=== PATIENT | female | born 1960 | race Caucasian/White ===

== ENCOUNTER 2017-09-03 14:33 | Emergency (ER) | payer OTHER ==
[2017-09-03 14:41] VITALS: RESP 18
[2017-09-03] MEDS ORDERED: HYDROcodone/APAP 5-325MG 1 EACH TAB PO STA (15:23)
--- NOTE | 2017-09-03 15:52 | CT ---
EXAMINATION TYPE: CT lumbar spine wo con DATE OF EXAM: 09/03/2017 COMPARISON: NONE HISTORY: Acute low back pain with bending over and leg weakness bilaterally. CT DLP: 1496.30 mGycm CONTRAST: None TECHNIQUE: CT of the lumbar spine is performed on a spiral scan at 3 mm thick sections. Reconstructed images are performed in the coronal and sagittal planes. FINDINGS: T12-L1: No focal disc herniation or significant disc bulge is evident. No spinal canal stenosis or neural foraminal stenosis is present. L1-L2: No focal disc herniation or significant disc bulge is evident. No spinal canal stenosis or n eural foraminal stenosis is present L2-L3: There appears be a large right paracentral focal disc herniation. This would have moderate to marked anterior thecal sac compression. No AP spinal canal stenosis is present. This could be confirm ed with MRI. L3-L4: Broad-based disc bulge has mild anterior thecal sac flattening. No AP spinal canal stenosis pr esent. Neural foramen are patent. L4-L5: Broad-based disc bulge has mild anterior thecal sac compression. Some mild ligamentum flavum l axity may be present. No spinal canal stenosis is present. Neural foramen are patent. L5-S1: No focal disc herniation or significant disc bulge is evident. No spinal canal stenosis or n eural foraminal stenosis is present Vertebral alignment appears normal. IMPRESSION: 1. Moderate to large right paracentral disc herniation L2-L3 with moderate anterior thecal sac compre ssion. This could be confirmed with MRI. 2. Disc bulging L3-4 L4-5 without spinal canal stenosis.
[2017-09-03] MEDS ORDERED: DEXAMETHASONE SOD PHOSPHATE 4 MG/ML 1 ML VIAL IV STA (16:07)
--- NOTE | 2017-09-03 16:07 | ED ---
General Adult HPI - General Source: patient, family, EMS, RN notes reviewed Mode of arrival: EMS Limitations: no limitations <Colby Pulido - Last Filed: 09/03/17 16:03> <David Ruvalcaba - Last Filed: 09/03/17 18:15> - General Chief complaint: Back Pain/Injury Stated complaint: back pain Time Seen by Provider: 09/03/17 14:49 - History of Present Illness Initial comments: If complaint and history of present illness a 57-year-old female here for complaint of low back pain. Patient reports she bent over and felt and heard a pop. Subsequent to that had pain radiating down both legs. Denies falling. But states walking is difficult. He needs help. Denies difficulty having bowel movements or urinating. Denies weakness in that respect. (Colby Pulido) - Related Data Home Medications Medication Instructions Recorded Confirmed Cholecalciferol (Vitamin D3) 2,000 unit PO DAILY 09/03/17 09/03/17 [Vitamin D3] Magnesium Oxide [Mag-Ox] 400 mg PO DAILY 09/03/17 09/03/17 Omeprazole [PriLOSEC] 20 mg PO DAILY 09/03/17 09/03/17 Warfarin [Coumadin] 5 mg PO MOWEFR 09/03/17 09/03/17 Warfarin [Coumadin] 7.5 mg PO SUTUTHSA 09/03/17 09/03/17 Allergies Allergy/AdvReac Type Severity Reaction Status Date / Time Iodinated Contrast- Oral and Allergy Rash/Hives Verified 09/03/17 14:57 IV Dye Review of Systems ROS Other: All systems not noted in ROS Statement are negative. <Colby Pulido - Last Filed: 09/03/17 16:03> ROS Other: All systems not noted in ROS Statement are negative. <David Ruvalcaba - Last Filed: 09/03/17 18:15> ROS Statement: Those systems with pertinent positive or pertinent negative responses have been documented in the HPI. Review of systems no headache or visual acuity changes denying any chest pain or shortness of breath no GI/ problems. She has lumbar area pain that radiates down both legs posteriorly. All systems reviewed. Past medical problems asthma, chronic back pain. Currently on warfare in because of a PE 10 years ago. The patient's surgeries include appendectomy, post cystectomy. She has ALLERGIES to IV dye oral and IV. Family history noncontributory. Patient is a former smoker denies alcohol use. (Colby Pulido) Past Medical History Past Medical History: Asthma Additional Past Medical History / Comment(s): back pain, bladder issues History of Any Multi-Drug Resistant Organisms: None Reported Past Surgical History: Appendectomy, Section, Cholecystectomy Past Psychological History: No Psychological Hx Reported Smoking Status: Former smoker Past Alcohol Use History: None Reported Past Drug Use History: None Reported <Colby Pulido - Last Filed: 09/03/17 16:03> General Exam Limitations: no limitations <Colby Pulido - Last Filed: 09/03/17 16:03> <David Ruvalcaba - Last Filed: 09/03/17 18:15> - General Exam Comments Initial Comments: General: The patient is awake and alert, complains of low back pain radiates down both legs causing weakness. Eye: Pupils are equal, round and reactive to light, extra-ocular movements are intact ; there is normal conjunctiva bilaterally. No signs of icterus. Ears, nose, mouth and throat: There are moist mucous membranes and no oral lesions. Neck: The neck is supple, there is no tenderness . Cardiovascular: There is a regular rate and rhythm. No murmur, rub or gallop is appreciated. Respiratory: Lungs are clear to auscultation, respirations are non-labored, breath sounds are equal. No wheezes, stridor, rales, or rhonchi. Gastrointestinal: No abdominal pain Back: . Complains of back pain. Discomfort that radiates down both legs posteriorly. Difficult walking. Musculoskeletal: Bilateral lower extremity pain starts in the lumbar spine after bending over and feeling a pop. Past history of lumbar disc problems. No foot drop. Vascular status to the feet are intact. Neurological: Suspect, possible disc injury. (Colby Pulido) Course <Colby Pulido - Last Filed: 09/03/17 16:03> <David Ruvalcaba - Last Filed: 09/03/17 18:15> Vital Signs 09/03/17 09/03/17 14:36 16:25 Temperature 97.6 F Pulse Rate 81 81 Respiratory 18 18 Rate Blood Pressure 127/60 147/65 O2 Sat by Pulse 98 97 Oximetry - Reevaluation(s) Reevaluation #1: 09/03/17 17:32 Patient was reevaluated by myself, Dr. Ruvalcaba. Sensation is intact distally. Good strength with dorsi and plantar flexion. Patient has difficulty lifting left legs off the bed, left more than right. Patient states her left leg does feel somewhat heavy. Patient denies any incontinence or retention. Case was discussed in detail with orthopedics Dr. Obando who states if there is weakness and patient should be transferred. 09/03/17 18:14 Case was discussed with Dr. Potts at [facility] who was unable to accept patient secondary to no coverage for neurosurgery. Case was also discussed with Dr. Gregorio at [facility] who will accept patient. Patient and family are updated. Patient does not feel she needs further pain medication at this time. (David Ruvalcaba) Medical Decision Making - Radiology Data Radiology results: report reviewed (Computed tomography scan of the lumbar spine shows moderate to large right paracentral disc herniation at L2-L3 with moderate anterior thecal sac compression.) <David Ruvalcaba - Last Filed: 09/03/17 18:15> Disposition <Colby Pulido - Last Filed: 09/03/17 16:03> - Out of Hospital Transfer - Req. Specs Out of Hospital Transfer - Requested Specifics: Other Emergency Center <David Ruvalcaba - Last Filed: 09/03/17 18:15> Clinical Impression: Acute herniated disc Disposition: OTHER INSTITUTION NOT DEFINED Referrals: Roldan Rivas MD [Primary Care Provider] - 1-2 days
[2017-09-03] MEDS ORDERED: HYDROmorphone 1 MG/ML 1 ML SYRINGE IVP STA (16:19)
[2017-09-03] MEDS ORDERED: FAMOTIDINE 20 MG/2 ML VIAL IV STA (17:31)
[2017-09-03 18:26] VITALS: BP 123/69; PULSE 69; TEMP 96.9
[2017-09-03] MEDS ORDERED: ONDANSETRON 4 MG/2 ML VIAL IVP STA (18:58)
== END 2017-09-03 19:08 | disposition other institution (70) ==
LOC: EC 14:33
DX: M51.26 Other intervertebral disc displacement, lumbar region (principal); Z79.01 Long term (current) use of anticoagulants; Z79.899 Other long term (current) drug therapy; Z91.041 Radiographic dye allergy status; Z87.891 Personal history of nicotine dependence; X50.9XXA Other and unspecified overexertion or strenuous movements or postures, initial encounter
CPT/HCPCS: 99285; 96374; 96375 ×3; 72131; J1100; J2405; J1170